=== PATIENT | male | born 1945 | race Caucasian/White ===

== ENCOUNTER → 2018-05-19 | Outpatient (CLI) | payer OTHER ==
[~2018-05-19] MED LIST: ALLO300T PO; ALPR0.5T6 PO; ASPI81TA45 PO; COLC0.6T37 PO; CYAN100072 PO; DIAZ5TAB PO; DOXYCYCLINE PO; FURO20TA3 PO; LANS15CA5 PO; METH750T87 PO; OMEP10CA4 PO; OXYB5TAB7 PO; OXYC1TAB7 PO; OXYC5CAP2 PO; OXYC5TAB3 PO; POLYETHYLENE GLYCOL PO; RANI300C PO; SENN-92 PO; SIMV20TA PO; TRAZ50TA66 PO; [UNRECOGNIZED DRUG - OTHER]
[2018-05-19 10:17] LABS: BASOPHILS # (AUTO) 0.03 x10^3/uL (0-0.1); BASOPHILS % (AUTO) 1 % (0-1); EOSINOPHILS # (AUTO) 0.22 x10^3/uL (0-0.4); EOSINOPHILS % (AUTO) 4 % (1-7); LYMPHOCYTES # (AUTO) 1.35 x10^3/uL (1-3.4); LYMPHOCYTES % (AUTO) 27 % (22-44); MD NO; MEAN CORPUSCULAR HEMOGLOBIN 30.7 pg (27.5-34.5); MEAN CORPUSCULAR HGB CONC 33.3 g/dL (33.2-36.2); MONOCYTES # (AUTO) 0.53 x10^3/uL (0.2-0.8); MONOCYTES % (AUTO) 11 % (2-9); NEUTROPHILS # (AUTO) 2.93 x10^3/uL (1.8-6.8); NEUTROPHILS % (AUTO) 58 % (42-75); PLATELET COUNT 228 x10^3/uL (130-400); RED CELL DISTRIBUTION WIDTH 15.9 % (9.4-14.8)
[2018-05-19 10:26] LABS: INTERNATIONAL NORMALIZED RATIO 1.06 (0.93-1.1); PROTHROMBIN TIME 11.1 Seconds (9.6-11.5)
[2018-05-19 10:29] LABS: ALBUMIN 3.9 g/dL (3.4-5.0); ANION GAP 5 mmol/L (5-15); CALCIUM 8.9 mg/dL (8.5-10.1); CHLORIDE 107 mmol/L (98-107)
[2018-05-19 10:32] LABS: ALANINE AMINOTRANSFERASE 26 U/L (12-78); ALKALINE PHOSPHATASE 97 U/L (45-117); BILIRUBIN,TOTAL 0.5 mg/dL (0.2-1.0); CREATININE 0.83 mg/dL (0.7-1.3); TOTAL PROTEIN 6.8 g/dL (6.4-8.2)
[2018-05-19 10:56] LABS: HEMOGLOBIN A1C 5.1 % (4.2-6.3)
== END | disposition home or self-care (01) ==
LOC: STAR 08:56
PROVIDERS: ATTEND Orthopaedic Surgery
DX: Z01.818 Encounter for other preprocedural examination (principal); I44.4 Left anterior fascicular block; T84.84XA Pain due to internal orthopedic prosthetic devices, implants and grafts, initial encounter; Z96.652 Presence of left artificial knee joint
CPT/HCPCS: 36415; 80053; 83036; 85025; 85610; 85730; 87081; 87806; 93005; G0475

== ENCOUNTER 2018-05-29 08:59 | Inpatient (IN) | payer OTHER ==
[~2018-05-29] VITALS: Ht 175.3 cm; Wt 96.9 kg
[~2018-05-29 08:59] MED LIST changes: +EPINEPHRINE 1 MG/ML, 1ML ONE; +KETOROLAC 60 MG/2 ML ONE; +ROPIvacaine/PF 0.2%, 20 ML ONE; +SODIUM CHLORIDE 0.9% 50 ML ONE; +TRANEXAMIC ACID 100 MG/ML, 10ML ONE
[2018-05-29] MEDS ORDERED: LACTATED RINGERS 1,000 ML IV SCH (11:06)
[2018-05-29] MEDS ORDERED: VANCOMYCIN PER PHARMACY MC STA (11:12)
[2018-05-29 11:28] VITALS: BP 154/88
[2018-05-29] MEDS ORDERED: ACETAMINOPHEN 500 MG TABLET PO ONE (11:30)
[2018-05-29] MEDS ORDERED: VANCOMYCIN 1,800 MG in SODIUM CHLORIDE 0.9% 250 ML IV ONE (11:30)
[2018-05-29] MEDS ORDERED: GABAPENTIN 300 MG CAPSULE PO ONE (11:30)
[2018-05-29] MEDS ORDERED: FENTANYL PF 250 MCG/5ML ONE (12:01)
[2018-05-29] MEDS ORDERED: ONDANSETRON 2MG/ML, 2ML IVPush PRN (13:30)
[2018-05-29] MEDS ORDERED: SENNA/DOCUSATE TABLET PO PRN (13:30)
[2018-05-29] MEDS ORDERED: ONDANSETRON 4 MG TABLET PO PRN (13:30)
[2018-05-29] MEDS ORDERED: ACETAMINOPHEN 650 MG/20.3 ML UDC PO PRN (13:30)
[2018-05-29] MEDS ORDERED: DIPHENHYDRAMINE 50 MG/ML, 1ML IVPush PRN (13:30)
[2018-05-29] MEDS ORDERED: TRANEXAMIC ACID 1,000 MG in SODIUM CHLORIDE 0.9% 100 ML IVPB ONE (13:30)
[2018-05-29] MEDS ORDERED: DIPHENHYDRAMINE 25 MG CAPSULE PO PRN (13:30)
[2018-05-29] MEDS ORDERED: PSYLLIUM PACKET PO PRN (13:30)
[2018-05-29] MEDS ORDERED: POLYETHYLENE GLYCOL 17 GM PACKET PO PRN (13:30)
[2018-05-29] MEDS ORDERED: PROMETHAZINE 12.5 MG SUPP PR PRN (13:30)
[2018-05-29] MEDS ORDERED: ALUMINUM/MAG/SIMETHICONE 30 ML UDC PO PRN (13:30)
[2018-05-29] MEDS ORDERED: MAGNESIUM HYDROXIDE 8%, 30ML UDC PO PRN (13:30)
[2018-05-29] MEDS ORDERED: PROMETHAZINE 25 MG/ML, 1ML IM PRN (13:30)
[2018-05-29] MEDS ORDERED: ACETAMINOPHEN 325 MG TABLET PO PRN (13:30)
[2018-05-29] MEDS ORDERED: GLYCOPYRROLATE 0.2MG/1ML, 5ML ONE (13:46)
[2018-05-29] MEDS ORDERED: SUCCINYLCHOLINE 20 MG/ML, 10ML ONE (13:46)
[2018-05-29] MEDS ORDERED: DEXAMETHASONE 4 MG/ML, 1ML ONE (13:46)
[2018-05-29] MEDS ORDERED: ROCURONIUM 10MG/ML,5ML ONE (13:46)
[2018-05-29] MEDS ORDERED: CEFAZOLIN 1,000 MG ONE (13:46)
[2018-05-29] MEDS ORDERED: ONDANSETRON 2MG/ML, 2ML ONE (13:46)
[2018-05-29] MEDS ORDERED: PROPOFOL 10 MG/ML, 20ML ONE (13:46)
[2018-05-29] MEDS ORDERED: ONDANSETRON 2MG/ML, 2ML IV PRN (14:30)
[2018-05-29] MEDS ORDERED: DIAZEPAM 5 MG/ML, 2ML IVPush PRN (14:30)
[2018-05-29] MEDS ORDERED: MEPERIDINE/PF 25MG/0.5ML IVPush PRN (14:30)
[2018-05-29] MEDS ORDERED: FENTANYL PF 100 MCG/2ML IV PRN (14:30)
[2018-05-29] MEDS ORDERED: HYDROmorphone 2 MG/ML, 1ML IVPush PRN (14:30)
[2018-05-29] MEDS ORDERED: ONDANSETRON ODT 8 MG PO PRN (14:30)
[2018-05-29] MEDS ORDERED: PROMETHAZINE 25 MG/ML, 1ML IV PRN (14:30)
[2018-05-29] MEDS ORDERED: OXYcodone 5 MG/5 ML ORAL.SOL UDC PO PRN (14:30)
[2018-05-29] MEDS: HYDROmorphone 1 MG/ML, 1ML INJ IVPush PRN ×4 (16:02→19:01)
[2018-05-29] MEDS ORDERED: OXYcodone 5 MG/5 ML ORAL.SOL UDC ONE (16:09)
[2018-05-29] MEDS ORDERED: HYDROmorphone 2 MG/ML, 1ML ONE ×2 (16:10→18:57)
[2018-05-29 17:30] VITALS: BP 159/94
[2018-05-29] MEDS ORDERED: ALPRAZOLAM MC SCH (18:00)
[2018-05-29] MEDS: POTASSIUM CHLORIDE 20 MEQ in D5%-0.45% NACL 1,000 ML IV SCH ×2 (18:03→23:24)
[2018-05-29 18:37] VITALS: BP 159/89
[2018-05-29] MEDS: ASPIRIN 81 MG TABLET EC PO SCH (19:35)
[2018-05-29] MEDS: KETOROLAC 30 MG/1 ML IV SCH (21:44)
[2018-05-29] MEDS: DOCUSATE 100 MG CAPSULE PO SCH (21:44)
[2018-05-29] MEDS: TRAZODONE 50MG TABLET PO SCH (21:45)
[2018-05-29] MEDS: OXYBUTYNIN CHLORIDE 5 MG TABLET PO SCH (21:45)
[2018-05-29] MEDS: CEFAZOLIN PMX 1GM/50ML 50 ML IVPB SCH (21:50)
[2018-05-30 00:15] VITALS: BP 114/66
[2018-05-30] MEDS: KETOROLAC 30 MG/1 ML IV SCH ×2 (05:16→14:11)
[2018-05-30 05:17] VITALS: BP 147/84
[2018-05-30] MEDS: CEFAZOLIN PMX 1GM/50ML 50 ML IVPB SCH (05:22)
[2018-05-30] MEDS: ASPIRIN 81 MG TABLET EC PO SCH ×2 (05:23→18:08)
[2018-05-30] MEDS ORDERED: DEXAMETHASONE 4 MG/ML, 1ML IVPush ONE (06:00)
[2018-05-30 07:24] VITALS: BP 138/71
[2018-05-30] MEDS: TAMSULOSIN 0.4 MG CAP.ER.24H PO SCH (08:29)
[2018-05-30] MEDS: OXYBUTYNIN CHLORIDE 5 MG TABLET PO SCH ×2 (08:29→21:11)
[2018-05-30] MEDS: DOCUSATE 100 MG CAPSULE PO SCH ×2 (08:30→21:11)
[2018-05-30] MEDS: FUROSEMIDE 20 MG TABLET PO SCH (08:31)
[2018-05-30] MEDS: OXYcodone IR 5MG TABLET PO PRN ×3 (08:31→16:29)
[2018-05-30] MEDS: POTASSIUM CHLORIDE 20 MEQ in D5%-0.45% NACL 1,000 ML IV SCH ×2 (09:34→19:09)
[2018-05-30 14:07] VITALS: BP 108/69
[2018-05-30] MEDS ORDERED: KETOROLAC 30 MG/1 ML ONE (14:08)
[2018-05-30 19:04] VITALS: BP 112/67
[2018-05-30] MEDS: TRAZODONE 50MG TABLET PO SCH (21:11)
[2018-05-31 00:19] VITALS: BP 129/78
[2018-05-31] MEDS: ASPIRIN 81 MG TABLET EC PO SCH (05:22)
[2018-05-31] MEDS: POTASSIUM CHLORIDE 20 MEQ in D5%-0.45% NACL 1,000 ML IV SCH (05:23)
[2018-05-31] MEDS: OXYcodone IR 5MG TABLET PO PRN (05:23)
[2018-05-31 07:37] VITALS: BP 133/73
[2018-05-31] MEDS: OXYBUTYNIN CHLORIDE 5 MG TABLET PO SCH (08:15)
[2018-05-31] MEDS: DOCUSATE 100 MG CAPSULE PO SCH (08:15)
[2018-05-31] MEDS: FUROSEMIDE 20 MG TABLET PO SCH (08:15)
[2018-05-31] MEDS: TAMSULOSIN 0.4 MG CAP.ER.24H PO SCH (08:15)
== END 2018-05-31 11:42 | disposition home or self-care (01) | DRG 467 ==
LOC: ORIP 10:45 → 4NOR 17:18 → DCLOUNGE 05-31 11:25
PROVIDERS: ADMIT Orthopaedic Surgery; ATTEND Orthopaedic Surgery
PROC: 0SRD0J9 Replacement of Left Knee Joint with Synthetic Substitute, Cemented, Open Approach (ICD-10-PCS; 2018-05-29)
PROC: 3E0T3BZ Introduction of Anesthetic Agent into Peripheral Nerves and Plexi, Percutaneous Approach (ICD-10-PCS; 2018-05-29)
PROC: 0SPD0JZ Removal of Synthetic Substitute from Left Knee Joint, Open Approach (ICD-10-PCS; principal; 2018-05-29 13:00)
DX: T84.093A Other mechanical complication of internal left knee prosthesis, initial encounter (principal); R71.0 Precipitous drop in hematocrit; G89.29 Other chronic pain; Y79.2 Prosthetic and other implants, materials and accessory orthopedic devices associated with adverse incidents; Z88.0 Allergy status to penicillin; Z85.46 Personal history of malignant neoplasm of prostate; Z91.041 Radiographic dye allergy status
CPT/HCPCS: 36415; 85014; 85018; 87015; 87070; 87075; 87102; 87116; 87205; 87206; C1713; G0378; J0171; J0690; J1100; J1170; J1885; J2405; J2704; J2795; J3010; J3370; J3480; C1776; J0330; J1200; J7050; J7120; Q0163

== ENCOUNTER 2018-07-13 14:59 | Emergency (ER) | payer OTHER ==
[~2018-07-13] VITALS: Ht 172.7 cm; Wt 94.0 kg
[~2018-07-13 14:59] MED LIST changes: -EPINEPHRINE 1 MG/ML, 1ML ONE; -KETOROLAC 60 MG/2 ML ONE; -ROPIvacaine/PF 0.2%, 20 ML ONE; -SODIUM CHLORIDE 0.9% 50 ML ONE; -TRANEXAMIC ACID 100 MG/ML, 10ML ONE
--- NOTE | 2018-07-13 15:03 | NUR ---
PT BIB [facility] THEN HAD C/O DIZZINESS. PER [facility] EKG NEGATIVE, PT PLACED ON CONTINUOUS PULSE OX, NIBP. PT HAS NO C/O DIZZINESS, CP, SOB. IN TO EXAMINE PT.
[2018-07-13] MEDS ORDERED: SODIUM CHLORIDE FLUSH 10ML SYR IVF ONE (15:30)
[2018-07-13] MEDS ORDERED: SODIUM CHLORIDE 0.9% 1,000ML IVBOLUS ONE (15:30)
[2018-07-13 15:35] LABS: BASOPHILS # (AUTO) 0.03 x10^3/uL (0-0.1); BASOPHILS % (AUTO) 1 % (0-1); EOSINOPHILS # (AUTO) 0.21 x10^3/uL (0-0.4); EOSINOPHILS % (AUTO) 4 % (1-7); LYMPHOCYTES # (AUTO) 1.29 x10^3/uL (1-3.4); LYMPHOCYTES % (AUTO) 23 % (22-44); MD NO; MEAN CORPUSCULAR HEMOGLOBIN 30.9 pg (27.5-34.5); MEAN CORPUSCULAR HGB CONC 32.6 g/dL (33.2-36.2); MEAN CORPUSCULAR VOLUME 94.6 fL (81-97); MEAN PLATELET VOLUME 7.3 fL (7.4-10.4); MONOCYTES # (AUTO) 0.44 x10^3/uL (0.2-0.8); MONOCYTES % (AUTO) 8 % (2-9); NEUTROPHILS # (AUTO) 3.76 x10^3/uL (1.8-6.8); NEUTROPHILS % (AUTO) 66 % (42-75); PLATELET COUNT 242 x10^3/uL (130-400); RED BLOOD COUNT 4.51 x10^6/uL (4.38-5.82); RED CELL DISTRIBUTION WIDTH 14.6 % (9.4-14.8)
[2018-07-13 15:46] LABS: ANION GAP 7 mmol/L (5-15); CALCIUM 8.9 mg/dL (8.5-10.1); CHLORIDE 106 mmol/L (98-107)
[2018-07-13 15:51] LABS: CREATININE 0.84 mg/dL (0.7-1.3); TROPONIN I < 0.015 ng/mL (0.000-0.045)
--- NOTE | 2018-07-13 16:30 | NUR ---
RECEIVED REPORT FROM LUIS POLANCO
[2018-07-13 17:16] VITALS: BP 133/74
== END 2018-07-13 17:32 | disposition home or self-care (01) ==
LOC: ED 17:05
DX: R55 Syncope and collapse (principal); R42 Dizziness and giddiness
CPT/HCPCS: 36415; 71045; 80048; 82040; 84484; 85025; 93005; 96360; 99284; J7030